=== PATIENT | male | born 1970 | race Caucasian/White ===

== ENCOUNTER 2017-12-16 11:36 | Outpatient (CLI) | payer BC, OTHER ==
--- NOTE | 2017-12-16 13:26 | RAD ---
2 VIEWS LUMBAR SPINE: Date: 12/16/17 HISTORY: Disability evaluation. COMPARISON: None. FINDINGS: Straightening of normal lumbar lordosis. Vertebral body height is maintained. No fracture. Mild osteo phyte formation. There are five lumbar-type vertebral bodies. IMPRESSION: Mild osteophyte formation without significant loss of disc space height. No malalignment. Straighteni ng of normal lumbar lordosis is presumed to be positional. POS: [facility]
== END 2017-12-16 11:37 | disposition home or self-care (01) ==
LOC: NAV RAD 11:36
PROVIDERS: ATTEND Family Medicine
DX: M25.78 Osteophyte, vertebrae (principal)
CPT/HCPCS: 72100